=== PATIENT | female | born 1990 | race Caucasian/White ===

== ENCOUNTER 2017-04-20 18:20 | Emergency (ER) | payer OTHER ==
[~2017-04-20] VITALS: Ht 167.6 cm; Wt 65.4 kg
[~2017-04-20 18:20] MED LIST: ORTHO TRI-CYCL1 EACH PO
[2017-04-20 20:50] VITALS: BP 125/78
== END 2017-04-20 20:51 | disposition home or self-care (01) ==
LOC: EME 18:20
DX: Z20.3 Contact with and (suspected) exposure to rabies (principal)
CPT/HCPCS: 99281; 99284